=== PATIENT | female | born 1995 | race Caucasian/White ===

== ENCOUNTER → 2020-04-02 | Outpatient (CLI) | payer MEDICAID ==
[2020-04-02 18:59] LABS: African American GFR (CKD) 121.3 (60.0-200.0); Anion Gap 6.8 mmol/L (4.00-12.00); Calcium 9.4 mg/dL (8.7-10.3); Carbon Dioxide 28.2 mmol/L (21.6-31.8); Chol/HDL Ratio 2.82; LDL Cholesterol,Calculated 59.6 mg/dL (0.0-131.0); Non-African American GFR(CKD) 104.6 (60.0-200.0); Potassium 4.2 mmol/L (3.5-5.5); VLDL Calculation 29.4 mg/dL (5.00-40.00)
[2020-04-02 21:56] LABS: Microalbumin Creatinine Ratio <30 mg/g Creat (0-30); Urine Creatinine 67.9 mg/dL
== END | disposition home or self-care (01) ==
LOC: LABWHC1 14:29
PROVIDERS: ATTEND Internal Medicine
DX: E10.65 Type 1 diabetes mellitus with hyperglycemia (principal)
CPT/HCPCS: 36415; 80048; 80061; 82043; 82570; 83036

== ENCOUNTER → 2020-08-12 | Outpatient (CLI) | payer MEDICAID ==
[2020-08-12 19:50] LABS: Hemoglobin A1C 8.4 % (4.0-6.0)
== END | disposition home or self-care (01) ==
LOC: LABWHC1 11:41
PROVIDERS: ATTEND Internal Medicine
DX: E10.65 Type 1 diabetes mellitus with hyperglycemia (principal)
CPT/HCPCS: 36415; 83036

== ENCOUNTER → 2021-02-16 | Outpatient (CLI) | payer MEDICAID ==
[2021-02-16 10:48] LABS: African American GFR (CKD) >90 (>60 ml/min/1.73 sqM); Anion Gap 7 mmol/L; Blood Urea Nitrogen 8 mg/dL (7-17); Calcium 9.5 mg/dL (8.4-10.2); Carbon Dioxide 28 mmol/L (22-30); Chloride 104 mmol/L (98-107); Glucose 145 mg/dL (74-99); Non-African American GFR(CKD) >90 (>60 ml/min/1.73 sqM); Potassium 4.3 mmol/L (3.5-5.1); Sodium 139 mmol/L (137-145)
[2021-02-16 17:53] LABS: Hemoglobin A1C 8.2 % (4.0-6.0)
[2021-02-16 19:49] LABS: Chol/HDL Ratio 2.73; Cholesterol 131 mg/dL (0-200); LDL Cholesterol,Calculated 69.6 mg/dL (0.0-131.0)
[2021-02-16 20:07] LABS: Urine Creatinine 171.2 mg/dL
== END | disposition home or self-care (01) ==
LOC: LABWHC1 09:34
PROVIDERS: ATTEND Internal Medicine
DX: E10.65 Type 1 diabetes mellitus with hyperglycemia (principal)
CPT/HCPCS: 36415; 80048; 80061; 82043; 82570; 83036

== ENCOUNTER 2021-07-23 09:10 | Outpatient (CLI) | payer MEDICAID ==
[2021-07-23 09:35] LABS: Glucose,Whole Blood 163 mg/dL (75-99)
== END 2021-07-23 09:45 ==
LOC: PEDOP 09:10
PROVIDERS: ATTEND Internal Medicine
DX: E10.65 Type 1 diabetes mellitus with hyperglycemia (principal); Z88.2 Allergy status to sulfonamides
CPT/HCPCS: 83036; 99212

== ENCOUNTER → 2022-03-31 | Outpatient (CLI) | payer MEDICAID | END | disposition home or self-care (01) | LOC: LABWHC1 11:48 | PROVIDERS: ATTEND Internal Medicine | DX: E10.65 Type 1 diabetes mellitus with hyperglycemia (principal) | CPT/HCPCS: 36415; 83036 ==

== ENCOUNTER → 2022-04-03 | Outpatient (CLI) | payer MEDICAID ==
--- NOTE | 2022-04-03 10:42 | USB ---
Findings: The whole breast of the right breast, the axilla of the right breast and the retroareolar of the right breast were scanned. There is a 1.1 x 1.1 x 1.4 cm solid nodule slightly hypoechoic 5:00 position 2 cm from the nipple. This correlates with the palpable abnormality. This should be considered suspicious and ultrasound-guided core biopsy is recommended. There is an additional hypoechoic area which appears circumscribed at the 10:00 position right breast 7 cm from nipple measuring 1.1 x 0.7 x 0.8 cm. Consider biopsy of this area as well. Overall Assessment: Suspicious, BI-RAD 4 Management: Ultrasound Core Biopsy of the right breast. A clinical breast exam by your physician is recommended on an annual basis and results should be correlated with mammographic findings. Electronically signed and approved by: Naman Sands D.O. Radiologis
== END | disposition home or self-care (01) ==
LOC: RADUSWWP 09:48
PROVIDERS: ATTEND Family Medicine
DX: N63.14 Unspecified lump in the right breast, lower inner quadrant (principal)

== ENCOUNTER → 2022-04-24 | Day surgery (SDC) | payer MEDICAID ==
--- NOTE | 2022-04-26 14:10 | USB ---
Pathology Description: Location: 5 o'clock. Marker Left Behind. Needle Type: VaD Cores: 2 Gauge: 14 The procedure of ultrasound guided core biopsy was explained to the patient. Benefits, alternatives, and risks were discussed. An informed consent was then obtained. The patient was placed in supine positioning for imaging and for the procedure. The overlying skin was prepped and draped in usual sterile fashion. Lidocaine buffered with bicarbonate was used as anesthetic into the skin and subcutaneous tissue up to area of concern in the right breast. A chela was made with surgical scalpel. Under ultrasound guidance the right breast 5:00 10 mm mass was targeted, a 14-gauge coaxial biopsy device was used to obtain 2 core samples. Following this, a biopsy clip was left in lesion. Under ultrasound guidance the right breast 10:00 8 mm mass was targeted, a 12-gauge vacuum assisted biopsy gun device was used to obtain 5 core samples. The lesion was difficult to penetrate with the vacuum assisted biopsy gun Following this, a biopsy clip was left in lesion. The patient tolerated the procedure well without any immediate complication. The patient was kept in the radiology department for short stay after the procedure and then discharged home in stable condition. Postprocedure mammogram: The patient was transferred to mammography for physician ordered post procedure mammogram for clip placement verification. Impression: 1. Successful, uncomplicated ultrasound guided core biopsy of area of concern in the right breast at 5:00, full pathology results to follow. 2. The lesion at 10:00 may have been undersampled secondary to dense breast tissue and a dense lesion which was mobile while attempting to obtain biopsies. Attention on pathology results. Pathology Results: Result: Benign, Fibroadenoma. A. RIGHT BREAST, 5:00, ULTRASOUND GUIDED NEEDLE CORE BIOPSY: Fibroadenoma. B. RIGHT BREAST, 10:00, ULTRASOUND GUIDED NEEDLE CORE BIOPSY: Fibroadenoma. Pathology Description: Location: 10 o'clock. Marker Left Behind. Needle Type: Mammotome Cores: 5 Gauge: 12 Overall Assessment: Benign Management: Diagnostic Breast Ultrasound of the right breast in 6 months. Electronically signed and approved by: Darius Gan DO
== END ==
LOC: RADUSWWP 12:41
PROVIDERS: ATTEND Surgery
DX: D24.1 Benign neoplasm of right breast (principal)
CPT/HCPCS: 88305; 19083; 19084; A4648